=== PATIENT | female | born 1935 | race Caucasian/White ===

== ENCOUNTER 2020-10-02 12:41 | Inpatient (IN) ==
[2020-10-02 14:01] LABS: Basophils % 0.1 % (0.0-0.8); Eosinophils % 0.5 % (0.00-10.9); Hematocrit 30.1 VOL% (35.7-47.0); Hemoglobin 10.2 GM/DL (12.0-16.0); Immature Granulocytes % 0.4 %; Immature Granulocytes Absolute 0.03 #; Lymphocytes # 1.5 10*3/uL (1.4-4.0); Lymphocytes % 17.5 % (21.3-54.2); Mean Corpuscular HGB Conc 33.9 GM/DL (32-36); Mean Corpuscular Volume 101.3 FL (87-102); Mean Platelet Volume 11.5 FL (9.6-12.0); Monocytes % 10.3 % (1.7-12.7); Neutrophils % 71.2 % (38.7-73.9); Platelet Count 111 T/CUMM (130-400); Red Blood Count 2.97 MC/CUMM (3.8-5.5); Red Cell Distribution Width 14.4 % (9.3-17.3); White Blood Count 8.4 T/CUMM (4-12)
[2020-10-02 14:22] LABS: INR 1.1; PT Patient Result 11.3 SECS (9.8-11.9); Partial Thromboplastin Time 28.9 SECS (23.9-33.8)
[2020-10-02 14:40] LABS: Albumin 2.3 G/DL (3.4-5.0); Bilirubin,Total 1.1 MG/DL (0.2-1.0); Calcium 7.1 MG/DL (8.5-10.1); Osmolality,Calculated 281.7 MOS/KG (273-304); Potassium 3.3 MMOL/L (3.5-5.1); Total Protein 5.8 G/DL (6.4-8.3)
[2020-10-02 16:14] LABS: Bilirubin,Urine Negative (Negative); Blood, Urine Small mg/dL (Negative); Glucose,Urine (UA) Negative (Negative); Hyaline Casts,Urine 2 /LPF (0-3); Ketones,Urine Negative (Negative); Mucus,Urine Occasional /LPF (Occasional); Nitrite,Urine Negative (Negative); Protein,Urine Negative; RBC,Urine 1 /HPF (0-4); Squamous Epithelial Cell,Urine Occasional /HPF (0-10); Urine Appearance CLEAR (Clear); Urine Color Yellow (Yellow); Urine Specific Gravity 1.006 (1.001-1.035); Urine Urobilinogen < 2.0 EU/DL (0.2-1.0); WBC,Urine 1 /HPF (0-6)
[2020-10-02] MEDS ORDERED: GLUCAGON 1 MG VIAL IM PRN (17:21)
[2020-10-02] MEDS ORDERED: DEXTROSE 50% 25 GM/50 ML VIAL IV PRN (17:21)
[2020-10-02] MEDS ORDERED: POTASSIUM CHLORIDE RIDER 10 MEQ in PREMIX 1 EACH IV PRN (18:59)
[2020-10-02] MEDS ORDERED: POTASSIUM CHLORIDE 20 MEQ TABLET PO PRN (18:59)
[2020-10-02] MEDS: GABAPENTIN 300 MG CAPSULE PO SCH (20:47)
[2020-10-02] MEDS: ENOXAPARIN 30 MG/0.3 ML SYRINGE SUBCUT SCH (20:51)
[2020-10-02] MEDS ORDERED: SIMVASTATIN 20 MG TABLET PO SCH (21:00)
[2020-10-03 04:36] LABS: Basophils % 0.2 % (0.0-0.8); Eosinophils # 0.1 10*3/uL (0.0-0.87); Hematocrit 31.9 VOL% (35.7-47.0); Hemoglobin 10.7 GM/DL (12.0-16.0); Immature Granulocytes % 0.8 %; Immature Granulocytes Absolute 0.08 #; Lymphocytes # 2.1 10*3/uL (1.4-4.0); Lymphocytes % 20.2 % (21.3-54.2); Mean Corpuscular HGB Conc 33.5 GM/DL (32-36); Mean Corpuscular Volume 100.6 FL (87-102); Mean Platelet Volume 12.2 FL (9.6-12.0); Monocytes % 10.4 % (1.7-12.7); Neutrophils % 67.4 % (38.7-73.9); Platelet Count 127 T/CUMM (130-400); Red Blood Count 3.17 MC/CUMM (3.8-5.5); Red Cell Distribution Width 14.1 % (9.3-17.3); White Blood Count 10.2 T/CUMM (4-12)
[2020-10-03 04:55] LABS: Albumin 2.9 G/DL (3.4-5.0); Calcium 9.1 MG/DL (8.5-10.1); Osmolality,Calculated 281.8 MOS/KG (273-304); Potassium 4.2 MMOL/L (3.5-5.1); Risk Ratio 3.36; Total Protein 7.6 G/DL (6.4-8.3); VLDL CHOLESTEROL 44.8 MG/DL
[2020-10-03] MEDS: PANTOPRAZOLE 40 MG TABLET PO SCH (06:18)
[2020-10-03] MEDS ORDERED: MAGNESIUM SULF RIDER 4 GM in PREMIX 1 EACH IV PRN (07:00)
[2020-10-03] MEDS ORDERED: MAGNESIUM SULF RIDER 2 GM in PREMIX 1 EACH IV PRN (07:00)
[2020-10-03] MEDS: GABAPENTIN 300 MG CAPSULE PO SCH ×2 (11:36→20:29)
[2020-10-03] MEDS: ASPIRIN EC 81 MG TABLET PO SCH (15:43)
[2020-10-03] MEDS: ATORVASTATIN 40 MG TABLET PO SCH (20:31)
[2020-10-03] MEDS: ENOXAPARIN 30 MG/0.3 ML SYRINGE SUBCUT SCH (20:31)
[2020-10-03] MEDS ORDERED: ACETAMINOPHEN 325 MG TABLET PO PRN (20:51)
[2020-10-04] MEDS: PANTOPRAZOLE 40 MG TABLET PO SCH (05:39)
[2020-10-04 05:52] LABS: Basophils % 0.5 % (0.0-0.8); Eosinophils # 0.2 10*3/uL (0.0-0.87); Eosinophils % 2.3 % (0.00-10.9); Hematocrit 30.6 VOL% (35.7-47.0); Hemoglobin 10.2 GM/DL (12.0-16.0); Immature Granulocytes % 0.5 %; Immature Granulocytes Absolute 0.04 #; Lymphocytes # 2.7 10*3/uL (1.4-4.0); Lymphocytes % 34.6 % (21.3-54.2); Mean Corpuscular HGB Conc 33.3 GM/DL (32-36); Monocytes % 11.6 % (1.7-12.7); Neutrophils % 50.5 % (38.7-73.9); Platelet Count 134 T/CUMM (130-400); Red Blood Count 3.06 MC/CUMM (3.8-5.5); Red Cell Distribution Width 14.5 % (9.3-17.3); White Blood Count 7.9 T/CUMM (4-12)
[2020-10-04 06:10] LABS: Calcium 8.8 MG/DL (8.5-10.1); Osmolality,Calculated 280.1 MOS/KG (273-304); Potassium 3.6 MMOL/L (3.5-5.1)
[2020-10-04 06:13] LABS: Troponin I 0.034 NG/ML (0.00-0.045)
[2020-10-04] MEDS: glipiZIDE 5 MG TABLET PO SCH (08:23)
[2020-10-04] MEDS: GABAPENTIN 300 MG CAPSULE PO SCH ×2 (08:23→20:16)
[2020-10-04] MEDS: allopurinoL 300 MG TABLET PO SCH (08:23)
[2020-10-04] MEDS: ASPIRIN EC 81 MG TABLET PO SCH (08:23)
[2020-10-04] MEDS: ENOXAPARIN 30 MG/0.3 ML SYRINGE SUBCUT SCH (20:17)
[2020-10-04] MEDS: ATORVASTATIN 40 MG TABLET PO SCH (20:17)
[2020-10-05] MEDS ORDERED: DIGOXIN 0.5 MG/2 ML AMP IV ONE (01:20)
[2020-10-05] MEDS: PANTOPRAZOLE 40 MG TABLET PO SCH (05:54)
[2020-10-05 06:54] LABS: Basophils % 0.5 % (0.0-0.8); Eosinophils # 0.3 10*3/uL (0.0-0.87); Eosinophils % 3.3 % (0.00-10.9); Hematocrit 31.3 VOL% (35.7-47.0); Hemoglobin 10.5 GM/DL (12.0-16.0); Immature Granulocytes % 0.6 %; Immature Granulocytes Absolute 0.05 #; Lymphocytes # 2.6 10*3/uL (1.4-4.0); Lymphocytes % 30.8 % (21.3-54.2); Mean Corpuscular HGB Conc 33.5 GM/DL (32-36); Mean Corpuscular Volume 102.3 FL (87-102); Mean Platelet Volume 12.1 FL (9.6-12.0); Monocytes % 9.5 % (1.7-12.7); Neutrophils % 55.3 % (38.7-73.9); Platelet Count 166 T/CUMM (130-400); Red Blood Count 3.06 MC/CUMM (3.8-5.5); Red Cell Distribution Width 14.3 % (9.3-17.3); White Blood Count 8.4 T/CUMM (4-12)
[2020-10-05 07:19] LABS: Calcium 9.3 MG/DL (8.5-10.1); Potassium 4.1 MMOL/L (3.5-5.1)
[2020-10-05] MEDS: METOPROLOL SUCCINATE XL 50 MG TABLET PO SCH (08:12)
[2020-10-05] MEDS: glipiZIDE 5 MG TABLET PO SCH (08:12)
[2020-10-05] MEDS: APIXABAN 2.5 MG TABLET PO SCH ×2 (08:12→20:19)
[2020-10-05] MEDS: GABAPENTIN 300 MG CAPSULE PO SCH ×2 (08:12→20:19)
[2020-10-05] MEDS: ASPIRIN EC 81 MG TABLET PO SCH (08:12)
[2020-10-05] MEDS: DIGOXIN 0.5 MG/2 ML AMP IV SCH ×2 (08:14→13:45)
[2020-10-05] MEDS ORDERED: POLYETHYLENE GLYCOL POWDER 17 GM PACK PO PRN (09:14)
[2020-10-05] MEDS: ATORVASTATIN 40 MG TABLET PO SCH (20:19)
[2020-10-06 05:24] LABS: Basophils % 0.3 % (0.0-0.8); Eosinophils # 0.2 10*3/uL (0.0-0.87); Eosinophils % 2.4 % (0.00-10.9); Hematocrit 29.8 VOL% (35.7-47.0); Hemoglobin 10.3 GM/DL (12.0-16.0); Immature Granulocytes % 0.5 %; Immature Granulocytes Absolute 0.05 #; Lymphocytes # 2.6 10*3/uL (1.4-4.0); Lymphocytes % 27.3 % (21.3-54.2); Mean Corpuscular HGB Conc 34.6 GM/DL (32-36); Mean Corpuscular Volume 99.7 FL (87-102); Mean Platelet Volume 11.7 FL (9.6-12.0); Monocytes % 11.8 % (1.7-12.7); Neutrophils % 57.7 % (38.7-73.9); Platelet Count 160 T/CUMM (130-400); Red Blood Count 2.99 MC/CUMM (3.8-5.5); Red Cell Distribution Width 14.1 % (9.3-17.3); White Blood Count 9.6 T/CUMM (4-12)
[2020-10-06 05:50] LABS: Calcium 8.8 MG/DL (8.5-10.1); Osmolality,Calculated 281.8 MOS/KG (273-304); Potassium 4.5 MMOL/L (3.5-5.1)
[2020-10-06] MEDS: PANTOPRAZOLE 40 MG TABLET PO SCH (06:26)
[2020-10-06] MEDS: APIXABAN 2.5 MG TABLET PO SCH (08:44)
[2020-10-06] MEDS: allopurinoL 300 MG TABLET PO SCH (08:44)
[2020-10-06] MEDS: GABAPENTIN 300 MG CAPSULE PO SCH (08:44)
[2020-10-06] MEDS: glipiZIDE 5 MG TABLET PO SCH (08:44)
[2020-10-06] MEDS: ASPIRIN EC 81 MG TABLET PO SCH (08:44)
[2020-10-06] MEDS: METOPROLOL SUCCINATE XL 50 MG TABLET PO SCH (08:45)
[2020-10-06 09:38] VITALS: BP 95/53
== END 2020-10-06 15:50 | DRG 65 ==
LOC: EDUNIT# → EDBD → N.ED 12:41 → N.EDINP 17:21 → INTOOBSV 17:21 → N.4E 18:09
PROVIDERS: ADMIT Internal Medicine; ATTEND Internal Medicine